=== PATIENT | female | born 1955 | race Caucasian/White ===

== ENCOUNTER 2016-10-04 21:32 | Emergency (ER) | payer OTHER ==
[~2016-10-04] VITALS: Ht 165.1 cm; Wt 108.9 kg
[2016-10-04 21:40] VITALS: BP 156/81
--- NOTE | 2016-10-04 22:08 | NUR ---
TO ER BED 8
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
[2016-10-04] MEDS: HYDROcodone/APAP 5/325 MG 1 TAB TAB PO ONE (23:04)
--- NOTE | 2016-10-04 23:06 | NUR ---
PT HAVING X-RAY DONE AT BEDSIDE AT THIS TIME.
[2016-10-04 23:33] VITALS: BP 142/78
== END 2016-10-04 23:34 | disposition home or self-care (01) ==
LOC: MED 21:32
DX: S50.11XA Contusion of right forearm, initial encounter (principal); E11.9 Type 2 diabetes mellitus without complications; Z88.0 Allergy status to penicillin; X58.XXXA Exposure to other specified factors, initial encounter; Y93.89 Activity, other specified; Y92.89 Other specified places as the place of occurrence of the external cause; Y99.8 Other external cause status
CPT/HCPCS: 73090; 99284; Q0092